=== PATIENT | male | born 1950 | race Caucasian/White ===

== ENCOUNTER 2020-12-20 10:27 | Outpatient (CLI) | payer MEDICARE | END 2020-12-20 10:28 | disposition home or self-care (01) | LOC: CSHULT 10:27 | PROVIDERS: ATTEND Family Medicine | DX: N28.1 Cyst of kidney, acquired (principal); N28.89 Other specified disorders of kidney and ureter | CPT/HCPCS: 76770 ==

== ENCOUNTER 2022-06-21 08:59 | Outpatient (CLI) | payer MEDICARE | END 2022-06-21 09:00 | disposition home or self-care (01) | LOC: CSHCP 08:59 | PROVIDERS: ATTEND Family Medicine | DX: R05.3 Chronic cough (principal); J98.4 Other disorders of lung | CPT/HCPCS: 94010; 94726; 94729; 94760 ==

== ENCOUNTER 2025-06-01 11:34 | Outpatient (CLI) | payer MEDICARE | END 2025-06-01 11:35 | disposition home or self-care (01) | LOC: CSHRAD 11:34 | PROVIDERS: ATTEND Internal Medicine Rheumatology | DX: M06.09 Rheumatoid arthritis without rheumatoid factor, multiple sites (principal) | CPT/HCPCS: 71046 ==